=== PATIENT | female | born 1990 | race Caucasian/White ===

== ENCOUNTER 2016-11-18 16:41 | Emergency (ER) | payer OTHER ==
[~2016-11-18] VITALS: Ht 162.6 cm; Wt 79.4 kg
[2016-11-18] VITALS (9 sets, daily range): BP systolic 125–160; BP diastolic 74–101
[~2016-11-18 16:41] MED LIST: AMOXICILLIN500 MG ORAL; AUGMENTIN 875-1 EAC1 ORAL; BACTRIM DS TAB1 EAC1 ORAL; BENADRYL50 MG ORAL; CIPROFLOXACIN500 M2 ORAL; CLINDAMYCIN HC300 MG ORAL; CYCLOBENZAPRINE10 MG ORAL; DOXYCYCLINE MO100 MG ORAL; IBUPROFEN600 MG ORAL; LEVAQUIN500 MG ORAL; METRONIDAZOLE500 MG ORAL; NKM; NORCO 5-325 TA1 EAC1 ORAL; NORCO 5-325 TA1 EACH ORAL; VICODIN ES1 EA ORAL
[2016-11-18] MEDS ORDERED: Oxycodone/Acetaminophen 5-325 ORAL ONE (17:15)
[2016-11-18] MEDS ORDERED: Ketamine HCl 100mg syr IV ONE (18:00)
--- NOTE | 2016-11-18 18:02 | Emergency Room Report ---
History of Present Illness General Chief Complaint: Upper Extremity Injury Source: Patient Present Illness HPI 26YOF walk-in with "right shoulder dislocation" happened while "horsing around" earlier. States 7x previous dislocation. Never seen orthopedist before. Allergies: Coded Allergies: No Known Allergies (Unverified , 02/17/12) Patient History Past Medical History: other - recurrent shoulder dislocation Past Surgical History: none Pertinent Family History: none Social History: Denies: alcohol use, drug use, smoking Last Menstrual Period: no cycles Now: No : 1 Para: 1 Immunizations: UTD Reviewed Nursing Documentation: PMH: Agreed, PSxH: Agreed Nursing Documentation-PMH Past Medical History: No Stated History Review of Systems All Other Systems: negative except mentioned in HPI Physical Exam Vital Signs Date Time Temp Pulse Resp B/P Pulse Ox O2 Delivery O2 Flow Rate FiO2 11/18/16 16:58 97.9 129 22 138/84 95 Room Air Sp02 EP Interpretation: reviewed, abnormal General Appearance: normal inspection, well appearing, no apparent distress, alert, GCS 15, non-toxic Head: normocephalic, atraumatic Eyes: bilateral eye EOMI, bilateral eye PERRL ENT: normal ENT inspection, hearing grossly normal, normal voice Neck: normal inspection, full range of motion, supple, no bony tend Respiratory: normal inspection, lungs clear, normal breath sounds, no respiratory distress, no retraction, no wheezing Cardiovascular #1: regular rate, rhythm, no edema Gastrointestinal: normal inspection, normal bowel sounds, non tender, soft, no guarding, no hernia Genitourinary: no CVA tenderness Musculoskeletal: other - Right shoulder: flattening of normal rounded shoulder anatomy. palpable humeral head anterior to joint. Sensation intact Neurologic: normal inspection, alert, oriented x3, responsive, analytical chemist III-XII nml as tested, motor strength/tone normal, speech normal Psychiatric: normal inspection, judgement/insight normal, mood/affect normal Skin: normal inspection, normal color, no rash Procedures Joint Reduction Joint Reduction : Consent: Written Joint Reduction Site: shoulder (R) Procedural Sedation: Yes Reduction Attempts: One Pre-Procedure NV Exam: Yes Post-Procedure NV Exam: Yes Post Joint Reduction Film: joint not reduced Patient Tolerated: Well Complications: None Procedural Sedation Consent: Written Pre-Sedation Assessment: Elective Airway Assessment (Malampati): I Heart: normal Lungs: normal Abdomen: normal Extremities: normal Procedures/Plans: Closed Reduction Plan for Moderate Sedation: Other - ketamine ASA Score: I Start Time: 18:34 End Time: 18:39 Communication: No Apparent Limitation Mental Status: Awake Respiration: Unlabored Skin Condition: WNL Abdomen: WNL Nausea: NO Vomiting: NO Medical Decision Making Diagnostic Impression: Primary Impression: Dislocation of right shoulder joint Qualified Codes: S43.004A - Unspecified dislocation of right shoulder joint, initial encounter ER Course S/p reduction in ED under conscious sedation - see notes DC with sling Advised Ortho followup for recurrent shoulder dislocation Other X-Ray Diagnostic Results # of Views/Limited Vs Complete: 3 View Interpretation: no fractures, no soft tissue swelling, other - shoulder dislocation Indication: Pain Impression: Other - dislocation Date Electronically Signed: Nov 18, 2016 Time Electronically Signed: 18:01 Interpreting ER Physician: Anh CT/MRI/US Diagnostic Results CT/MRI/US Diagnostic Results : Imaging Test Ordered: Right shoulder Impression 3 views ED review S/p interval reduction of right shoulder dislocation No fx Last Vital Signs Date Time Temp Pulse Resp B/P Pulse Ox O2 Delivery O2 Flow Rate FiO2 11/18/16 17:49 97.9 144 23 125/74 99 Room Air Status: improved Disposition: HOME, SELF-CARE AFRICA GOMEZ M.D. Nov 18, 2016 18:01
--- NOTE | 2016-11-19 09:39 | Diagnostic Imaging Report ---
Indication: Right shoulder pain Technique: XRAY SHOULDER MIN 3V RIGHT Comparison: Examination from the same day at 1733 hrs. Findings: Right anterior shoulder dislocation has been reduced. There is a Hill-Sachs impaction deformity of the humeral head. Impression: Interval reduction of anterior shoulder dislocation. Hill-Sachs impaction deformity of the humeral head.
--- NOTE | 2016-11-19 09:41 | Diagnostic Imaging Report ---
Indication: Right shoulder pain Technique: XRAY SHOULDER MIN 3V RIGHT Comparison: None Findings: There is a right anterior shoulder dislocation with Hill-Sachs impaction of the humeral head. Impression: Right anterior shoulder dislocation with Hill-Sachs impaction of the humeral head.
== END 2016-11-18 19:45 | disposition home or self-care (01) ==
LOC: EMR 19:35
DX: S43.004A Unspecified dislocation of right shoulder joint, initial encounter (principal); X58.XXXA Exposure to other specified factors, initial encounter; Y92.89 Other specified places as the place of occurrence of the external cause; S43.084A Other dislocation of right shoulder joint, initial encounter
CPT/HCPCS: 23655; 73030; 96374; 96375; 99284; J2405; Z7502

== ENCOUNTER 2017-04-14 20:07 | Emergency (ER) | payer OTHER ==
[~2017-04-14] VITALS: Ht 160 cm; Wt 73.0 kg
[2017-04-14] MEDS ORDERED: AMOXICILLIN500 MG ORAL (21:07)
[2017-04-14] MEDS ORDERED: IBUPROFEN400 MG ORAL (21:08)
[2017-04-14 21:23] VITALS: BP 129/86
--- NOTE | 2017-04-14 23:43 | Emergency Room Report ---
History of Present Illness General Chief Complaint: Headache Source: Patient Present Illness [facility] This is a 27-year-old female presented after increased headache. The patient reported having gradual onset of headache for the past 3 weeks. She reports having increased right-sided facial pain. She had associated dental pain. She reports having some minimal swelling to the right side of her face. Pain was worse with movement. She states she presenting taking ibuprofen with some relief. She denies any purulent drainage. Allergies: Coded Allergies: No Known Allergies (Unverified , 02/17/12) Patient History Past Medical History: see triage record Last Menstrual Period: unk Reviewed Nursing Documentation: PMH: Agreed, PSxH: Agreed Nursing Documentation-PMH Past Medical History: No Stated History Review of Systems All Other Systems: negative except mentioned in HPI Physical Exam Vital Signs Date Time Temp Pulse Resp B/P (MAP) Pulse Ox O2 Delivery O2 Flow Rate FiO2 04/14/17 20:17 98.1 49 18 129/86 99 Room Air Sp02 EP Interpretation: reviewed, normal General Appearance: normal inspection, well appearing, no apparent distress, alert, GCS 15 Head: atraumatic ENT: normal ENT inspection, hearing grossly normal, normal voice, other - minimal tenderness to right maxillary sinus Neck: normal inspection, full range of motion, supple, no bony tend Respiratory: normal inspection, lungs clear, normal breath sounds, no respiratory distress, no retraction, no wheezing Cardiovascular #1: regular rate, rhythm, no edema Gastrointestinal: normal inspection, normal bowel sounds, non tender, soft, no guarding, no hernia Genitourinary: no CVA tenderness Musculoskeletal: normal inspection, back normal, normal range of motion Neurologic: normal inspection, alert, oriented x3, responsive, 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 The patient was noted to have a benign exam. the patient appears have some pain which may be referred from a sinus infection. patient was given prescription for amoxicillin.The patient is advised to follow up with primary care doctor in 1-2 days. Patient is advised to return if any worsening condition or if any changes in status that are concerning. Last Vital Signs Date Time Temp Pulse Resp B/P (MAP) Pulse Ox O2 Delivery O2 Flow Rate FiO2 04/14/17 21:23 98.1 18 129/86 99 Room Air 04/14/17 20:17 49 Status: improved Disposition: HOME, SELF-CARE Condition: Stable Scripts Ibuprofen* (MOTRIN*) 400 Mg Tablet 400 MG ORAL THREE TIMES A DAY, #30 TAB 0 Refills Prov: Mo Sapp 04/14/17 Amoxicillin* (AMOXIL*) 500 Mg Capsule 500 MG ORAL THREE TIMES A DAY, #30 CAP Prov: Mo Sapp 04/14/17 Referrals: [facility],REFERRING (PCP) Patient Instructions: Dental Pain Mo Sapp Apr 14, 2017 23:43
== END 2017-04-14 22:07 | disposition home or self-care (01) ==
LOC: EMR 20:50
DX: K08.89 Other specified disorders of teeth and supporting structures (principal); R51 Headache
CPT/HCPCS: 99284

== ENCOUNTER 2017-06-24 07:19 | Emergency (ER) | payer SELFPAY ==
[~2017-06-24] VITALS: Ht 160 cm; Wt 74.4 kg
[~2017-06-24 07:19] MED LIST changes: +IBUPROFEN400 MG ORAL
[2017-06-24] MEDS ORDERED: IBUPROFEN800 MG ORAL (07:38)
[2017-06-24] MEDS ORDERED: ACETAMINOPHEN-1 EAC1 ORAL (07:38)
[2017-06-24 07:51] VITALS: BP 117/64
--- NOTE | 2017-06-24 08:37 | Emergency Room Report ---
History of Present Illness General Chief Complaint: Toothache Source: Patient Present Illness HPI 27-year-old female walks in with 2-3 days of upper left posterior tooth pain worse hot or cold beverages Denies any fever or chills States no gum pain, pain only when she touches broken tooth She does not recall any recent trauma Has had previous fillings for cracked tooth in the past Call dentist but doesn't have appointment for next couple weeks Ibuprofen one time at home Allergies: Coded Allergies: No Known Allergies (Unverified , 02/17/12) Patient History Past Medical History: none Past Surgical History: none Pertinent Family History: none Social History: Denies: smoking, alcohol use, drug use Last Menstrual Period: 06/08/17 Now: No Immunizations: UTD Reviewed Nursing Documentation: PMH: Agreed, PSxH: Agreed Nursing Documentation-PMH Past Medical History: No Stated History Review of Systems All Other Systems: negative except mentioned in HPI Physical Exam Vital Signs Date Time Temp Pulse Resp B/P (MAP) Pulse Ox O2 Delivery O2 Flow Rate FiO2 06/24/17 07:22 97.9 65 18 117/64 100 Room Air Sp02 EP Interpretation: reviewed, normal General Appearance: normal inspection, well appearing, no apparent distress, alert, GCS 15, non-toxic Head: normocephalic, atraumatic Eyes: bilateral eye PERRL, bilateral eye EOMI ENT: normal ENT inspection, hearing grossly normal, normal pharynx, no angioedema, normal voice, TMs + canals normal, uvula midline, moist mucus membranes, other - overall good dentition, upper or left to second from the back is cracked. There is no pericapical inflammation, ttp, or infection. Ttp centered to cracked tooth itself. No gum swelling or facial swelling Neck: normal inspection, full range of motion, supple, thyroid normal, no meningismus, no bony tend Respiratory: normal inspection, lungs clear, normal breath sounds, no rhonchi, no respiratory distress, no retraction, no accessory muscle use, no wheezing, speaking full sentences Cardiovascular #1: regular rate, rhythm, no edema, no JVD, normal capillary refill Gastrointestinal: normal inspection, normal bowel sounds, non tender, soft, no mass, no peritonitis, non-distended, no guarding, no hernia, no pulsatile mass Genitourinary: no CVA tenderness Musculoskeletal: normal inspection, back normal, normal range of motion, no calf tenderness, pelvis stable, Karri's Sign negative Neurologic: normal inspection, alert, oriented x3, responsive, 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 No sign of periapical infection, inflammation. No sign of oral or soft tissue infection or inflammation. Recommended [id number] clove oil Also recommended a alternating between ibuprofen and Tylenol with Codeine Recommended try to followup with dentist sooner than given appointment ER course: Patient has remained stable during ED stay. Disposition: Patient is to be discharged to home. Prescriptions given are T#3, motrin Patient is instructed to follow up with their primary care doctor within 5 days. Strict return precautions discussed with patient such as fever, chills, worsening/severe pain, nausea, vomiting, which may indicate severe illness. Patient verbalizes understanding and agrees with plan. Please note that this Emergency Department Report was dictated using [email or web address] technology software, occasionally this can lead to erroneous entry secondary to interpretation by the dictation equipment Last Vital Signs Date Time Temp Pulse Resp B/P (MAP) Pulse Ox O2 Delivery O2 Flow Rate FiO2 06/24/17 07:51 97.9 18 117/64 100 Room Air 06/24/17 07:22 65 Status: improved Disposition: HOME, SELF-CARE Condition: Improved Scripts Acetaminophen With Codeine (T#3) (TYLENOL #3 TAB*) Y Tab 1 TAB ORAL Q8H Y for Severe Pain (Pain Scale 7-10) for 7 Days, #20 TAB Prov: A[place] GOMEZ M.D. 06/24/17 Ibuprofen* (MOTRIN*) 800 Mg Tablet 800 MG ORAL THREE TIMES A DAY for dental pain for 7 Days, #30 TAB 0 Refills Prov: AFRICA GOMEZ M.D. 06/24/17 Referrals: NON PHYSICIAN (PCP) Patient Instructions: Dental Pain Additional Instructions: - Alternate Tylenol and ibuprofen every 3-4 hours - Get some [id number] clove oil from pharmacy: Just a dab on a cotton swab on the tooth or area that hurts and after a few minutes, it'll be good and numb. - Follow up with dentist as soon as possible AFRICA GOMEZ M.D. Jun 24, 2017 08:37
== END 2017-06-24 07:53 | disposition home or self-care (01) ==
LOC: EMR 07:40
DX: K08.89 Other specified disorders of teeth and supporting structures (principal)
CPT/HCPCS: 99284